=== PATIENT | male | born 1940 | race Caucasian/White ===

== ENCOUNTER 2017-01-15 06:47 | Day surgery (SDC) | payer MEDICARE ==
--- NOTE | 2017-01-01 10:50 | NUR ---
PREOP VISIT VISITED WITH PATIENT AND HIS PRIOR TO COLONOSCOPY/ EGD. PT HAS A CARDIAC HISTORY WITH NO CARDIAC EVENTS IN OVER A YEAR. HE SAW DR BARILLAS A MONTH AGO. REQUESTING CARDIAC CLEARANCE FROM DR BARILLAS. REVIEWED MEDICATIONS; ALLERGIES; AND HEALTH HISTORY WITH THE PATIENT AND HIS . QUESTIONS ASKED AND ANSWERED
[~2017-01-15] VITALS: Ht 170.2 cm; Wt 63.5 kg
[~2017-01-15 06:47] MED LIST: ASPI-611 PO; BENA40TA35 PO; CHOL200026 PO; CYAN25002 PO; FENO48TA5 PO; FLUO20CA30 PO; FOLI0.4T2 PO; HYDR12.512 PO; HYDR1TAB73 PO; SIMV40TA82 PO; SUCR1TAB43 PO; TIOT18CA6 IH
--- OUTSIDE RECORDS SUMMARY | 2017-01-15 06:51 | XMS REPORT ---
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 Problem Depressive disorder, 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 Problem Other chronic pain 338.29 Active Problem Chronic kidney disease, unspecified 585.9 Active Problem Mixed hyperlipidemia 272.2 Active Problem Hypertension, benign 401.1 Active Medications Medication Code System Code Instructions Start Date End Date Status Dosage Vitamin B-12 [facility] [address]-07 500 MCG Orally Once a day Active 1 tablet Hydrochlorothiazide [facility] [address]-08 12.5 Orally Once a day Active 1 tablet Fluoxetine HCl [facility] [address]-07 20 Orally Once a day Active taking 2 capsules daily Trilipix [facility] [address]-58 135 MG Orally Once a day Jun 08, 2014 Active 1 capsule Folic Acid [facility] [address]-85 800 MCG Orally Once a day Active 1 tablet Benazepril HCl [facility] [address]-74 40 MG Orally Once a day Jun 16, 2014 Active 1 tablet Simvastatin [facility] [address]-03 40 Active TAKE ONE TABLET BY MOUTH EVERY DAY Spiriva HandiHaler [facility] [address]-33 18 MCG Inhalation Once a day January 23, 2015 Active 1 capsule Vitamin D-3 Super Strength [facility] [address]-45 2000 UNIT Orally Active as directed Abilify [facility] [address]-57 2 MG Orally Once a day after supper May 26, 2014 Active 1 tablet Metoprolol Tartrate [facility] [address]-40 25 MG Orally once a day Active 1/2 tablet Aspirin Adult Low Strength [facility] [address]-31 81 MG Orally Once a day Active 1 tablet Trazodone HCl [facility] [address]-59 50 Active TAKE ONE-HALF TO ONE TABLET BY MOUTH EVERY NIGHT AT BEDTIME Procedures Procedure Coding System Code Date OFFICE VISIT, EST-MOD. COMPLEXITY (25 MIN) CPT-4 53192 Sep 22, 2014 Vital Signs Date/Time: Sep 22, 2014 Height 66 inches Weight 137 lbs Temperature 97.6 F Blood Pressure Diastolic 60 mm Hg Blood Pressure Systolic 132 mm Hg Cardiac Monitoring Heart Rate 60 Beats per Minute BMI 22.11 Index Respiratory Rate 18 per Minute Results No Known Results Summary Purpose eClinicalWorks Submission
--- OUTSIDE RECORDS SUMMARY | 2017-01-15 06:51 | XMS REPORT ---
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
--- OUTSIDE RECORDS SUMMARY | 2017-01-15 06:52 | XMS REPORT ---
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
--- OUTSIDE RECORDS SUMMARY | 2017-01-15 06:52 | XMS REPORT ---
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 Active Problem Essential (primary) hypertension I10 Active Problem Other chronic pain G89.29 Active Problem Mixed hyperlipidemia E78.2 Active Problem Major depressive disorder, single episode, unspecified F32.9 Active Problem Depressive disorder, 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 Problem Chronic kidney disease, unspecified N18.9 Active Problem Chronic obstructive pulmonary disease, unspecified J44.9 Active Problem Chronic airway obstruction, not elsewhere classified 496 Active Problem Chronic kidney disease, unspecified 585.9 Active Problem Other chronic pain 338.29 Active Problem Hypertension, benign 401.1 Active Medications Medication Code System Code Instructions Start Date End Date Status Dosage Hydrocodone-Acetaminophen [facility][NOTE 3] [address]-52 7.5-325 MG Orally every 6 hrs as needed Sep 24, 2016 1 tablet as needed Results No Known Results Summary Purpose eClinicalWorks Submission
--- OUTSIDE RECORDS SUMMARY | 2017-01-15 06:52 | XMS REPORT ---
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
--- OUTSIDE RECORDS SUMMARY | 2017-01-15 06:52 | XMS REPORT ---
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
--- OUTSIDE RECORDS SUMMARY | 2017-01-15 06:52 | XMS REPORT ---
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 Active Problem Essential (primary) hypertension I10 Active Assessment Major depressive disorder, single episode, unspecified F32.9 Active Problem Other chronic pain G89.29 Active Problem Mixed hyperlipidemia E78.2 Active Problem Major depressive disorder, single episode, unspecified F32.9 Active Problem Depressive disorder, 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 Problem Chronic kidney disease, unspecified N18.9 Active Problem Chronic obstructive pulmonary disease, unspecified J44.9 Active Assessment Other chronic pain G89.29 Active Assessment Essential (primary) hypertension I10 Active Assessment Chronic obstructive pulmonary disease, unspecified J44.9 Active Assessment Chronic kidney disease, unspecified N18.9 Active Problem Chronic airway obstruction, not elsewhere classified 496 Active Problem Chronic kidney disease, unspecified 585.9 Active Assessment Mixed hyperlipidemia E78.2 Active Problem Other chronic pain 338.29 Active Assessment 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 Problem Hypertension, benign 401.1 Active Medications Medication Code System Code Instructions Start Date End Date Status Dosage Simvastatin [facility] [address]-88 40 MG Orally Once a day TAKE ONE TABLET BY MOUTH EVERY DAY Aspirin Adult Low Strength [facility] [address]-82 81 MG Orally Once a day 1 tablet Trazodone HCl [facility] 51726057384 50 TAKE ONE-HALF TO ONE TABLET BY MOUTH EVERY NIGHT AT BEDTIME Fluoxetine HCl [facility] [address]-97 20 Orally Once a day February 11, 2015 taking 2 capsules daily Multivitamins [facility] [address]-39 Orally not defined Cetirizine HCl [facility] [address]-22 10 MG Orally Once a day Sep 13, 2015 Dec 12, 2015 1 tablet Hydrocodone-Acetaminophen [facility] [address]-29 7.5-325 MG Orally every 6 hrs January 14, 2015 1 tablet as needed Fenofibrate [facility] [address]-09 48 MG Orally Once a day 1 tablet Benazepril HCl [facility] [address]-97 40 MG Orally Once a day Jun 16, 2014 1 tablet Folic Acid [facility] [address]-19 800 MCG Orally Once a day 1 tablet Sucralfate [facility] [address]-65 1 GM Orally Four times a day before meals and at bedtime January 03, 2016 1 tablet Metoprolol Tartrate [facility] 44152688111 25MG TAKE ONE-HALF TABLET BY MOUTH ONCE DAILY Spiriva HandiHaler [facility] [address]-84 18 MCG Inhalation Once a day Nov 1 capsule Procedures Procedure Coding System Code Date ASSAY OF PHOSPHORUS CPT-4 91105 Sep 13, 2015 TSH CPT-4 24226 Sep 13, 2015 COMPLETE CBC W/AUTO DIFF WBC CPT-4 52025 Sep 13, 2015 IH LIPID PANEL CPT-4 80009 Sep 13, 2015 IH CMP CPT-4 23607 Sep 13, 2015 OFFICE VISIT, EST-LOW COMPLEXITY (15 MIN.) CPT-4 90149 Sep 13, 2015 Vital Signs Date/Time: Sep 13, 2015 BMI 22.24 Index Height 66 in Weight 137.8 lbs Respiratory Rate 16 /min Blood Pressure Diastolic 84 mm Hg Blood Pressure Systolic 164 mm Hg Cardiac Monitoring Heart Rate 55 /min Results Name Result Date Reference Range Unit Abnormality Flag TSH ----TSH 3.78 [id number] 0.35-4.94 uIU/mL In House CMP ----Total Protein 7.5 54144207 6.4 - 8.1 G/DL ----Glucose 91 52162644 73 - 118 mg/DL ----Chloride 97* 46138938 98 - 108 mmol/L ----Albumin 3.9 65121847 3.3 - 5.5 g/DL ----BUN 20 20150913 7 - 22 mg/DL ----Total Bilirubin 0.7 39143419 0.2 - 1.6 mg/DL ----Calcium 9.5 18496523 8.0 - 10.3 mg/DL ----AST 25 65543145 11 - 38 u/L ----Sodium 140 84783967 128 - 145 mmol/L ----CO2 30 76766364 18 - 33 mmol/L ----Potassium 4.6 50630650 3.6 - 5.1 mmol/L ----ALT 16 95590376 10 - 47 u/L ----Creatinine 1.5* 93677869 0.6 - 1.2 mg/DL ----Alkaline Phosphatase 48* 88485604 53 - 128 u/L CBC With Platelet and Differential ----Absolute Eosinophils 0.46 79153231 0.00-0.50 10*3 ----Absolute Monocytes 1.03 14935793 0.30-1.00 10*3 H ----Neutrophils 65 84838196 51-75 % ----Absolute Basophils 0.08 77484403 0.00-0.20 10*3 ----MPV 10.7 87910621 8.8-14.8 fL ----Monocytes 11 13864237 4-11 % ----RDW 13.7 44893583 11.5-14.5 % ----Lymphocytes 18 49359063 20-46 % L ----MCHC 33.8 24921415 32.0-36.0 g/dL ----MCH 31.3 60918374 27.0-32.0 pg ----MCV 92.6 38858423 82.0-99.0 fL ----Immature Granulocytes 0.2 26051614 0.0-1.0 % ----Platelet Count 277 63869559 150-400 K/uL ----Absolute Lymphocytes 1.61 36408866 0.80-3.30 10*3 ----Absolute Neutrophils 5.88 00019507 1.90-7.00 10*3 ----Eosinophils 5 23333508 0-4 % H ----Basophils 1 47674277 0-2 % ----WBC 9.1 79269045 4.8-10.8 K/uL ----RBC 5.11 37326455 4.60-6.20 10*6/uL ----HGB 16.0 21789937 14.0-18.0 g/dL ----HCT 47.3 20150913 42.0-52.0 % Phosphorus ----Phosphorus 4.6 50242628 2.3-4.7 mg/dL In House Lipid Panel ----VLDL 64 20150913 ----LDL 67 20150913 ----Chol/HDL Ratio 3.8 20150913 ----[facility] 131 20150913 ----Triglycerides 319 20150913 ----HDL 47 97211607 ----Cholesterol 178 20150913 Summary Purpose eClinicalWorks Submission
--- OUTSIDE RECORDS SUMMARY | 2017-01-15 06:52 | XMS REPORT ---
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 Active Problem Essential (primary) [...] Chronic kidney disease, unspecified 585.9 Active Assessment Major depressive disorder, single episode, unspecified F32.9 Active Problem Other chronic pain 338.29 Active Assessment Other chronic pain G89.29 Active Problem Hypertension, benign 401.1 Active Medications Medication Code System Code Instructions Start Date End Date Status Dosage Aspirin Adult Low Strength [facility] [address]-60 81 MG Orally Once a day 1 tablet Trazodone HCl [facility] 17424514647 50 TAKE ONE-HALF TO ONE TABLET BY MOUTH EVERY NIGHT AT BEDTIME Fenofibrate [facility] [address]-57 48 MG Orally Once a day 1 tablet Hydrocodone-Acetaminophen [facility] [address]-61 7.5-325 MG Orally every 6 hrs as needed Dec 03, 2015 1 tablet as needed Multivitamins [facility] [address]-26 Orally not defined Fluoxetine HCl [facility] [address]-54 20 MG Orally Once a day February 11, 2015 2 capsules Sucralfate [facility] [address]-94 1 GM Orally Four times a day before meals and at bedtime January 03, 2016 1 tablet Simvastatin [facility] [address]-35 40 MG Orally Once a day TAKE ONE TABLET BY MOUTH EVERY DAY Folic Acid [facility] [address]-57 800 MCG Orally Once a day 1 tablet Cetirizine HCl [facility] [address]-59 10 MG Orally Once a day Sep 13, 2015 Dec 12, 2015 1 tablet Metoprolol Tartrate [facility] 17655193535 25MG TAKE ONE-HALF TABLET BY MOUTH ONCE DAILY Benazepril HCl [facility] [address]-49 40 MG Orally Once a day Jun 16, 2014 1 tablet Spiriva HandiHaler [facility] [address]-97 18 MCG Inhalation Once a day Nov 1 capsule Procedures Procedure Coding System Code Date OFFICE VISIT, EST-LOW COMPLEXITY (15 MIN.) CPT-4 04944 Nov 03, 2015 [facility] visit Established Patient CPT-4 G0467 Nov 03, 2015 Vital Signs Date/Time: Nov 03, 2015 Height 66 in Weight 135.12 lbs Temperature 97.9 F Blood Pressure Diastolic 64 mm Hg Blood Pressure Systolic 118 mm Hg Cardiac Monitoring Heart Rate 56 /min BMI 21.81 Index Respiratory Rate 18 /min Results No Known Results Summary Purpose eClinicalWorks Submission
--- OUTSIDE RECORDS SUMMARY | 2017-01-15 06:52 | XMS REPORT ---
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
--- OUTSIDE RECORDS SUMMARY | 2017-01-15 06:52 | XMS REPORT ---
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
--- OUTSIDE RECORDS SUMMARY | 2017-01-15 06:52 | XMS REPORT ---
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
--- OUTSIDE RECORDS SUMMARY | 2017-01-15 06:52 | XMS REPORT ---
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 Problem Other chronic pain 338.29 Active Problem Chronic kidney disease, unspecified 585.9 Active Problem Mixed hyperlipidemia 272.2 Active Problem Hypertension, benign 401.1 Active Medications Medication Code System Code Instructions Start Date End Date Status Dosage [facility] [place] [address]-56 7.5-325 MG Orally every 6 hrs *February fill 10/12/14* Oct 16, 2013 Sep 11, 2014 Active 1 tablet as needed Vital Signs Date/Time: Jul 28, 2014 Height 66 inches Weight 138.50 lbs Temperature 97.7 F Blood Pressure Diastolic 60 mm Hg Blood Pressure Systolic 118 mm Hg Cardiac Monitoring Heart Rate 64 Beats per Minute BMI 22.35 Index Respiratory Rate 16 per Minute Results No Known Results Summary Purpose eClinicalWorks Submission
--- OUTSIDE RECORDS SUMMARY | 2017-01-15 06:53 | XMS REPORT ---
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 [address]-53 7.5-325 MG Orally every 6 hrs Oct 30, 2015 1 tablet as needed Results No Known Results Summary Purpose eClinicalWorks Submission
--- OUTSIDE RECORDS SUMMARY | 2017-01-15 06:53 | XMS REPORT ---
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
--- OUTSIDE RECORDS SUMMARY | 2017-01-15 06:53 | XMS REPORT ---
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
--- OUTSIDE RECORDS SUMMARY | 2017-01-15 06:53 | XMS REPORT ---
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 [address]-42 20 MG Orally Once a day February 11, 2015 2 capsules Results No Known Results Summary Purpose eClinicalWorks Submission
--- OUTSIDE RECORDS SUMMARY | 2017-01-15 06:53 | XMS REPORT ---
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
--- OUTSIDE RECORDS SUMMARY | 2017-01-15 06:53 | XMS REPORT ---
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
--- OUTSIDE RECORDS SUMMARY | 2017-01-15 06:53 | XMS REPORT ---
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
--- OUTSIDE RECORDS SUMMARY | 2017-01-15 06:53 | XMS REPORT ---
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 To be filled Oct 10, 2016 every 6 hrs as needed Sep 29, 2016 1 tablet as needed Results No Known Results Summary Purpose eClinicalWorks Submission
--- OUTSIDE RECORDS SUMMARY | 2017-01-15 06:53 | XMS REPORT ---
Author Author Venecia Browning [facility] eClinicalWorks Address Unknown Phone Unavailable Care Team Providers Care Lead Pressman R[employer] Printing Name Role Phone Venecia Browning CP Unavailable Allergies, Adverse Reactions, Alerts Substance Reaction Event Type Wellbutrin hallucinations Drug Allergy NSAIDS-due to CKD Info Not Available Non Drug Allergy Problems Problem Type Condition Code Onset Dates Condition Status Assessment Mixed hyperlipidemia 272.2 Active Problem Chronic airway obstruction, not elsewhere classified 496 Active Assessment Macular degeneration (senile) of retina, unspecified 362.50 Active Problem Reflux esophagitis 530.11 Active Problem 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 Active Problem Depressive disorder, 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 Problem Other chronic pain 338.29 Active Problem Chronic kidney disease, unspecified 585.9 Active Problem Mixed hyperlipidemia 272.2 Active Problem Hypertension, benign 401.1 Active Assessment Chronic airway obstruction, not elsewhere classified 496 Active Assessment 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 Active Assessment Chronic kidney disease, unspecified 585.9 Active Assessment Reflux esophagitis 530.11 Active Assessment Other chronic pain 338.29 Active Assessment Depressive disorder, 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 Assessment Hypertension, benign 401.1 Active Medications Medication Code System Code Instructions Start Date End Date Status Dosage Aspirin Adult Low Strength [facility] [address]-84 81 MG Orally Once a day 1 tablet Benazepril HCl [facility] [address]-71 40 MG Orally Once a day Jun 16, 2014 1 tablet Vitamin B-12 [facility] [address]-24 500 MCG Orally Once a day 1 tablet Sucralfate [facility] [address]-60 1 GM Orally Twice a day 1 tablet Folic Acid [facility] [address]-61 800 MCG Orally Once a day 1 tablet [place] [facility] [address]-45 7.5-325 MG Orally every 6 hrs *February10/12/14* Oct 16, 2013 Sep 11, 2014 1 tablet as needed Trazodone HCl [facility] [address]-06 50 TAKE ONE-HALF TO ONE TABLET BY MOUTH EVERY NIGHT AT BEDTIME Fluoxetine HCl [facility] [address]-94 20 Orally Once a day taking 2 capsules daily Hydrochlorothiazide [facility] [address]-20 12.5 Orally Once a day 1 tablet Vitamin D-3 Super Strength [facility] [address]-05 2000 UNIT Orally as directed Spiriva HandiHaler [facility] [address]-33 18 MCG Inhalation Once a day Nov 1 capsule Hydrocodone-Acetaminophen [facility] [address]-93 7.5-325 MG Orally every 6 hrs January 14, 2015 1 tablet as needed Metoprolol Tartrate [facility] [address]-92 25 MG Orally once a day 1/2 tablet Simvastatin [facility] [address]-96 40 TAKE ONE TABLET BY MOUTH EVERY DAY Fenofibrate [facility] [address]-29 48 MG Orally Once a day 1 tablet Procedures Procedure Coding System Code Date COMPLETE CBC W/AUTO DIFF WBC CPT-4 39813 December 15, 2014 LIPID PANEL CPT-4 48003 December 15, 2014 OFFICE VISIT, EST-MOD. COMPLEXITY (25 MIN) CPT-4 27729 December 15, 2014 RENAL FUNCTION PANEL CPT-4 97669 December 15, 2014 Vital Signs Date/Time: December 15, 2014 Height 66 in Weight 142.4 lbs Temperature 97.9 F Blood Pressure Diastolic 78 mm Hg Blood Pressure Systolic 124 mm Hg Cardiac Monitoring Heart Rate 58 /min BMI 22.98 Index Respiratory Rate 16 /min Results No Known Results Summary Purpose eClinicalWorks Submission
--- OUTSIDE RECORDS SUMMARY | 2017-01-15 06:53 | XMS REPORT ---
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30 Active Assessment Other specified cardiac arrhythmias I49.8 Active Problem Chronic airway obstruction, not elsewhere classified 496 Active Problem Chronic kidney disease, unspecified 585.9 Active Assessment Other chronic pain G89.29 Active Problem Other chronic pain 338.29 Active Assessment Essential (primary) hypertension I10 Active Problem Hypertension, benign 401.1 Active Medications Medication Code System Code Instructions Start Date End Date Status Dosage OxyContin [facility] [address]-12 10 MG Orally once a day Oct 20, 2015 Nov 19, 2015 1 tablet Fluoxetine HCl [facility] [address]-96 20 MG Orally Once a day February 11, 2015 2 capsules Spiriva HandiHaler [facility] [address]-63 18 MCG Inhalation Once a day Nov 1 capsule Trazodone HCl [facility] 72685695486 50 TAKE ONE-HALF TO ONE TABLET BY MOUTH EVERY NIGHT AT BEDTIME Hydrocodone-Acetaminophen [facility] [address]-51 7.5-325 MG Orally in afternoon and bedtime 1 tablet as needed Aspirin Adult Low Strength [facility] [address]-62 81 MG Orally Once a day 1 tablet Cetirizine HCl [facility] [address]-05 10 MG Orally Once a day Sep 13, 2015 Dec 12, 2015 1 tablet Sucralfate [facility] [address]-16 1 GM Orally Four times a day before meals and at bedtime January 03, 2016 1 tablet Simvastatin [facility] [address]-08 40 MG Orally Once a day TAKE ONE TABLET BY MOUTH EVERY DAY Folic Acid [facility] [address]-66 800 MCG Orally Once a day 1 tablet Multivitamins [facility] [address]-98 Orally not defined Metoprolol Tartrate [facility] 21018625268 25MG TAKE ONE-HALF TABLET BY MOUTH ONCE DAILY Benazepril HCl [facility] [address]-63 40 MG Orally Once a day Jun 16, 2014 1 tablet Fenofibrate [facility] [address]-33 48 MG Orally Once a day 1 tablet Procedures Procedure Coding System Code Date [facility] visit Established Patient CPT-4 G0467 Oct 20, 2015 OFFICE VISIT, EST-MOD. COMPLEXITY (25 MIN) CPT-4 86452 Oct 20, 2015 [facility] visit Established Patient CPT-4 G0467 Oct 20, 2015 Vital Signs Date/Time: Oct 20, 2015 Height 66 in Weight 131.8 lbs Temperature 97.7 F Blood Pressure Diastolic 79 mm Hg Blood Pressure Systolic 134 mm Hg Cardiac Monitoring Heart Rate 58 /min BMI 21.27 Index Respiratory Rate 16 /min Results No Known Results Summary Purpose eClinicalWorks Submission
--- OUTSIDE RECORDS SUMMARY | 2017-01-15 06:53 | XMS REPORT ---
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 [address]-27 7.5-325 MG Orally every 6 hrs January 14, 2015 1 tablet as needed Results No Known Results Summary Purpose [employer] Submission
--- OUTSIDE RECORDS SUMMARY | 2017-01-15 06:53 | XMS REPORT ---
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
--- OUTSIDE RECORDS SUMMARY | 2017-01-15 06:53 | XMS REPORT ---
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
--- OUTSIDE RECORDS SUMMARY | 2017-01-15 06:53 | XMS REPORT ---
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
--- OUTSIDE RECORDS SUMMARY | 2017-01-15 06:54 | XMS REPORT | Continuity of Care Document ---
Author Author [facility] Organization [facility] Address Unknown Phone Unavailable Support Name Relationship Address Phone STACEY DOTSON FILTER TIP INSPECTOR [place] [address] RANDY GARCIA MD Caregiver [facility] [address] VERONICA ALLEN [place] [phone] PIERCE WINN Next Of Kin [address] [place] [address] C Insurance Providers Payer Name Policy Number Subscriber Name Relationship Medicareadvantra Ppo [id number] Ariel Winn 17 Self Advance Directives Directive Response Recorded Date/Time Ordered Resuscitation Status Full Code 09/30/14 7:35am Resuscitation Documents on File No 09/29/14 10:39am Problems No known problems or medical conditions. Medications Medication Dose Route Sig Days/Qty Instructions Order Date Discontinued Date Status Simvastatin 40 Mg PO DAILY 06/12/11 Active Benazepril Hcl 40 Mg PO DAILY 06/12/11 Active Metoprolol Tartrate 25 Mg PO DAILY 06/12/11 Active Hydrochlorothiazide 12.5 Mg PO DAILY 06/12/11 Active Fluoxetine HCl 40 Mg PO DAILY 06/12/11 Active Hydrocodone Bit/Acetaminophen 1 Tab PO PRN 07/06/11 Active Sucralfate 1 G PO DAILY 02/09/12 Active Omeprazole 40 Mg PO DAILY 02/09/12 07/10/12 Discontinued Aspirin 81 Mg PO DAILY 02/09/12 Active Folic Acid 1 Mg PO DAILY 02/09/12 Active Calcium 500 Mg PO DAILY 02/09/12 07/10/12 Discontinued Tiotropium [place] 18 Mcg IH DAILY 02/09/12 Active Vit C/Vit E/Lutein/Min/Switzer-3 1 Cap PO DAILY 09/29/14 Active Social History Social History Problem Response Recorded Date/Time Chewing Tobacco Status No 08/21/2013 9:07am Hx Substance Use No 09/29/2014 10:42am Hx Alcohol Use Y BEER ON THE WEEKENDS 09/29/2014 10:42am Has the pt used tobacco in the last 12 months Yes 09/29/2014 10:42am Query Response Start Date Stop Date Smoking Status Current every day smoker Hospital Discharge Instructions No hospital discharge instructions. Plan of Care No plan of care. Functional Status No functional status results. Allergies, Adverse Reactions, Alerts Allergen Type Severity Reaction Status Last Updated No Known Drug Allergies Allergy Active 06/12/11 Immunizations Name Given Type Hx Influenza Vaccination Y FALL 2013 Historical Hx Pneumococcal Vaccination No Historical Hx Influenza Vaccination Y FALL 2013 Historical Vital Signs Acute Vital Signs Vital Response Date/Time Temperature (Fahrenheit) 97.4 deg F (96.8 - 99.1) Temperature (Calculated Celsius) 36.99715 degrees C (36.0 - 37.3) Temperature Source Temporal Pulse Rate (adult) 60 bpm (60 - 100) Respiratory Rate 16 breaths/min (10 - 20) O2 Sat by Pulse Oximetry 94 % (90 - 100) Oxygen Delivery Method Room Air Blood Pressure 111/52 mm Hg Blood Pressure Source Automatic Cuff Height 5 ft 7 in Weight 138 lb Body Mass Index 21.0 kg/m^2 Results Test Source Date Result Interp. Ref. Range Comments Alanine Aminotransferase (ALT/SGPT) May 30, 2011 7:30am 19 U/L L 21- 72 Albumin May 28, 2014 9:29am 3.9 G/DL N 3.5-5.0 Albumin/Globulin Ratio May 30, 2011 7:30am 1.3 RATIO N 1.1-2.2 Alkaline Phosphatase May 30, 2011 7:30am 62 U/L N 38-126 Anion Gap May 28, 2014 9:29am 11 MEQ/L N 5-15 Aspartate Amino Transf (AST/SGOT) May 30, 2011 7:30am 21 U/L N 17-59 BUN/Creatinine Ratio May 28, 2014 9:29am 15 RATIO N 6-26 Band Neutrophils # December 27, 2011 12:00am 0.1 T/MM3 - COMMENT WILL CALL WHEN PT ADMITTED Band Neutrophils % December 27, 2011 12:00am 1.0 % N 0-6 COMMENT WILL CALL WHEN PT ADMITTED Basophils # (Auto) August 25, 2013 12:00pm 0.1 T/MM3 N 0-0.2 Basophils (%) (Auto) August 25, 2013 12:00pm 0.5 % N 0-2 Blood Urea Nitrogen May 28, 2014 9:29am 24.0 MG/DL H 9-20 Calcium Level May 28, 2014 9:29am 9.3 MG/DL N 8.4-10.2 Calculated Osmolality May 28, 2014 9:29am 272 MOSM/KG N 261-280 Carbon Dioxide Level May 28, 2014 9:29am 27 MEQ/L N 22-30 Chloride Level May 28, 2014 9:29am 101 MEQ/L N 98-107 Cholesterol Level May 30, 2011 7:30am 175 MG/DL N 132-199 Cholesterol/HDL Ratio May 30, 2011 7:30am 4.0 RATIO N 0-5.0 Creatinine May 28, 2014 9:29am 1.6 MG/DL H 0.8-1.5 Eosinophils # (Auto) August 25, 2013 12:00pm 0.3 T/MM3 N 0-0.5 Eosinophils # (Manual) December 27, 2011 12:00am 0.4 T/MM3 N 0-0.5 COMMENT WILL CALL WHEN PT ADMITTED Eosinophils % (Manual) December 27, 2011 12:00am 4.0 % N 0-4 COMMENT WILL CALL WHEN PT ADMITTED Eosinophils (%) (Auto) August 25, 2013 12:00pm 2.3 % N 0-4 Free Thyroxine May 30, 2011 7:30am 0.92 NG/DL N 0.78-2.19 Globulin May 30, 2011 7:30am 3.1 G/DL N 2.4-3.6 Glucose Level May 28, 2014 9:29am 102 MG/DL N 75-110 Helicobacter pylori IgG Antibody May 30, 2011 7:30am Ref lab rpt scanned - --- 05/31/11 0832 ---HPYLIGG previously reported as: SENT OUT Hematocrit August 25, 2013 12:00pm 43.3 % N 41-53 Hemoglobin August 25, 2013 12:00pm 14.2 GM/DL N 13.5-17.5 LDL Cholesterol, Calculated May 30, 2011 7:30am 95.0 N 66-159 Lymphocytes # (Auto) August 25, 2013 12:00pm 1.2 T/MM3 N 1-4.8 Lymphocytes # (Manual) December 27, 2011 12:00am 1.1 T/MM3 N 1-4.8 COMMENT WILL CALL WHEN PT ADMITTED Lymphocytes % (Manual) December 27, 2011 12:00am 11.0 % L 23-45 COMMENT WILL CALL WHEN PT ADMITTED Lymphocytes (%) (Auto) August 25, 2013 12:00pm 7.7 % L 23-45 Mean Corpuscular Hemoglobin August 25, 2013 12:00pm 31.3 UUG N 26-34 Mean Corpuscular Hemoglobin Concent August 25, 2013 12:00pm 32.8 GM/DL N 31-37 Mean Corpuscular Volume August 25, 2013 12:00pm 95.6 UM3 N 80-100 Mean Platelet Volume August 25, 2013 12:00pm 9.4 UM3 N 9.4-12.4 Monocytes # (Auto) August 25, 2013 12:00pm 0.8 T/MM3 N 0-0.8 Monocytes # (Manual) December 27, 2011 12:00am 0.8 T/MM3 N 0-0.8 COMMENT WILL CALL WHEN PT ADMITTED Monocytes % (Manual) December 27, 2011 12:00am 8.0 % N 0-9.0 COMMENT WILL CALL WHEN PT ADMITTED Monocytes (%) (Auto) August 25, 2013 12:00pm 5.2 % N 0-9.0 Neutrophils # (Auto) August 25, 2013 12:00pm 12.5 T/MM3 H 1.8-7.7 Neutrophils # (Manual) December 27, 2011 12:00am 7.8 T/MM3 H 1.8-7.7 COMMENT WILL CALL WHEN PT ADMITTED Neutrophils % (Manual) December 27, 2011 12:00am 76.0 % H 33-66 COMMENT WILL CALL WHEN PT ADMITTED Neutrophils (%) (Auto) August 25, 2013 12:00pm 84.0 % H 33-66 Parathyroid Hormone (Intact) January 08, 2012 11:04am 64.2 PG/ML H 7.5- 53.5 Phosphorus Level May 28, 2014 9:29am 4.7 MG/DL H 2.5-4.5 Platelet Count August 25, 2013 12:00pm 262 T/MM3 N 130-400 Potassium Level May 28, 2014 9:29am 4.5 MEQ/L N 3.6-5 Prostate Specific Antigen March 30, 2010 12:00am 2.94 NG/ML N 0-4.0 Prostate Specific Antigen Screen November 19, 2008 7:36am 2.23 NG/ML N 0 -4.0 Protein Electrophoresis (T) January 08, 2012 11:04am Ref lab rpt scanned - --- 01/11/12 1449 ---PROTELS previously reported as: SEND OUT RDW Standard Deviation August 25, 2013 12:00pm 46.5 FL N 36.9-50.2 Red Blood Count August 25, 2013 12:00pm 4.53 M/MM3 N 4.50-5.90 Sodium Level May 28, 2014 9:29am 139 MEQ/L N 134-144 Thyroid Stimulating Hormone (TSH) May 30, 2011 7:30am 3.10 MIU/L N 0.47-4.68 Total Bilirubin May 30, 2011 7:30am 0.30 MG/DL N 0.20-1.30 Total Protein May 30, 2011 7:30am 7.2 G/DL N 6.3-8.2 Triglycerides Level May 30, 2011 7:30am 180 MG/DL H 40-160 Urine Bilirubin January 08, 2012 11:04am Negative - [facility]U [place] Urine Blood January 08, 2012 11:04am Negative - [facility] [place] [facility] Urine Collection Type January 08, 2012 11:04am Voided - [facility] [place] [facility] Urine Color January 08, 2012 11:04am Yellow - [facility] [place] [facility] Urine Culture Indicated January 08, 2012 11:04am Cult not indicated - [facility] Urine Glucose (UA) January 08, 2012 11:04am Negative - [facility] [place] [facility] Urine Ketones January 08, 2012 11:04am Negative - [facility] [place] Urine Leukocyte Esterase January 08, 2012 11:04am Negative - [facility] [place] Urine Microalbumin December 28, 2011 10:30am 8.8 MG/L N 0-17 Urine Microalbumin/Creatinine Ratio December 28, 2011 10:30am 63.4 H 0-30 Urine Mucus December 28, 2011 10:30am Present - Urine Nitrite January 08, 2012 11:04am Negative - [facility] [place] Urine Protein January 08, 2012 11:04am Negative - [facility] [place] Urine Protein Electrophoresis 24 hr January 08, 2012 11:04am Ref lab rpt scanned - --- 01/10/12 1548 ---PROTELU previously reported as: SEND OUT Urine RBC December 28, 2011 10:30am Trace /HPF - Urine Random Creatinine December 28, 2011 10:30am 138.7 MG/DL - Urine Specific [place] January 08, 2012 11:04am 1.020 - [facility] Urine Turbidity January 08, 2012 11:04am Clear - [facility] Urine Urobilinogen January 08, 2012 11:04am Normal EU/DL - [facility] Urine WBC December 28, 2011 10:30am None seen /HPF - Urine pH January 08, 2012 11:04am 5.0 - [facility] [place] VLDL Cholesterol May 30, 2011 7:30am 36.0 MG/DL H 0-28 Vitamin D 25-Hydroxy January 08, 2012 11:04am Ref lab rpt scanned - -- - 01/11/12 1449 ---[email or web address] previously reported as: SEND OUT White Blood Count August 25, 2013 12:00pm 14.9 T/MM3 H 4.5-11.0 Chemistry Specimen Hemolysis May 28, 2014 9:29am < 15 0-25 0-25: No Hemolysis.26-70: Slight Hemolysis - can falsely elevate K and Urine Protein. 71-285: Moderate Hemolysis - can falsely elevate K, Troponin I, CA 19-9, PTH, CSF GLucose, and Urine Protein, and can falsely decrease Phenytoin. 286-999: Gross Hemolysis - can falsely elevate K, Troponin I, CA 19-9, PTH, CSF Glucose, and Urine Protine, and can falsely decrease Phenytoin. Recommend specimen recollection. Lab Scanned Report May 28, 2014 11:28am LAB TEST FORM REQUEST [id number] - HDL Cholesterol Direct May 30, 2011 7:30am 44 MG/DL N 40-60 Turbidity May 28, 2014 9:29am < 20 0-20 Glomerular Filtration Rate Calc May 28, 2014 9:29am 42 - Immature Granulocyte # (Auto) August 25, 2013 12:00pm 0.05 T/MM3 H 0.00-0.03 Immature Granulocyte % (Auto) August 25, 2013 12:00pm 0.3 % N 0.0-0.5 Icterus Index May 28, 2014 9:29am < 2 0-7 C. difficile Toxin B Gene (PCR) August 16, 2013 5:30am Negative - If Toxin A is clinically indicated, treat accordingly. Helicobacter pylori Rapid Urease Gastric Biopsy June 13, 2011 11:07am Procedures Procedure Status Date Provider(s) Esophagogastroduodenoscopy (EGD) with heater probe therapy completed RANDY GARCIA MD
[2017-01-15] MEDS ORDERED: LR 1,000 ML IV SCH (07:00)
[2017-01-15] MEDS ORDERED: LIDOCAINE 1% (10mg/ml) 2ml SDV INJ ONE (07:00)
[2017-01-15 07:10] VITALS: Ht 170.2 cm; Wt 63.5 kg
[2017-01-15] MEDS ORDERED: LIDOCAINE VISCOUS 2% Oral Soln 15ml UD ONE (07:20)
[2017-01-15 07:30] VITALS: BP 137/68; PULSE 68; RESP 18; TEMP 97.8; O2SAT 96
[2017-01-15] MEDS ORDERED: HYDR-4010 PO (07:51)
[2017-01-15] MEDS ORDERED: PROPOFOL 500mg 50 ML IV ONE (08:48)
[2017-01-15] MEDS ORDERED: LIDOCAINE (2%) 100 MG/5 ML PF SYRINGE IV ONE (08:48)
--- NOTE | 2017-01-15 08:52 | ANESPREOP ---
Anesthesia Record Date and Time DATE: 01/15/17 TIME: 08:50 Pre-Op Diagnosis Hx of polyps Proposed Surgical Procedure COLONOSCOPY NPO since: Midnight Allergies: Coded Allergies: No Known Drug Allergies (Verified Allergy, Unknown, 01/15/17) Ht/Wt/BMI Height: 5 ' 7.00 " Weight: 63.500 kg BMI: 21.9 kg/m2 Medications Inpatient Medications Current Medications Medications (Trade) Dose Ordered Sig/Fredi Start Time Stop Time Status Last Admin Dose Admin Lactated Ringer's (Lactated Ringers) 1,000 ml @ 50 mls/hr Q20H 01/15/17 07:00 01/15/17 07:58 50 MLS/HR Aspirin (Aspirin) 81 Mg Tablet, 81 MG PO DAILY, (Reported) Last Taken: on 01/14/17 050 Benazepril Hcl (Benazepril Hcl) 40 Mg Tablet, 40 MG PO DAILY, (Reported) Last Taken: on 01/14/17 050 Cholecalciferol (Vitamin D3) (Vitamin D-3) 2, 000 Unit Capsule, 1 CAP PO DAILY, (Reported) Last Taken: on 01/14/17 050 Cyanocobalamin (Vitamin B-12) (Vitamin B-12) 2, 500 Mcg Tab.subl, 1 TAB PO DAILY, (Reported) Last Taken: on 01/14/17 050 Fenofibrate Nanocrystallized (Fenofibrate) 48 Mg Tablet, 1 TAB PO DAILY, (Reported) Last Taken: on Unknown Date & Time Fluoxetine HCl (Prozac) 20 Mg Capsule, 2 CAP PO DAILY, (Reported) Last Taken: on 01/14/17 0500 Folic Acid (Folic Acid) 0.4 Mg Tablet, 1 TAB PO DAILY, (Reported) Last Taken: on 01/14/17 0500 Hydrochlorothiazide (Hydrochlorothiazide) 12.5 Mg Tablet, 0.5 TAB PO DAILY, (Reported) Last Taken: on 01/14/17 0500 Hydrocodone/Acetaminophen (Lortab 7.5-325 mg Tablet) 1 Each Tablet, 1 TAB PO Q4H PRN for PAIN, (Reported) Last Taken: on 01/14/17 1900 Simvastatin (Simvastatin) 40 Mg Tablet, 40 MG PO DAILY, (Reported) Last Taken: on Unknown Date & Time Sucralfate (Carafate) 1 G Tablet, 1 G PO , (Reported) Last Taken: on 01/14/17 0500 Tiotropium [place] (Spiriva) 18 Mcg Cap.w.dev, 18 MCG IH DAILY, (Reported) Last Taken: on Unknown Date & Time Currently on Beta [place]: No Medical/Surgical History Anesthesia PMH: Reports: *Angina (over a year ), *Dyspnea, *Hypertension, *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 smoked today?: No Use Chewing Tobacco?: No Second Hand Exposure: No Substance Use Type: does not use Alcohol Intake: none Past Surgical History Orthopedic Surgeries: No Abdominal Surgeries: No Genitourinary Surgeries: No Cardiac Surgeries: Yes - carotid surgery, 5 bypass, heart stents Endocrine Surgeries: No Reproductive Surgeries: No Neurological Surgeries: No Ear Surgeries: No Nose Surgeries: No Throat Surgeries: Yes - EGD Other Surgeries: Yes - Anthony CATARACTS,EGD x3,COLONOSCOPY x2 Anesthesia Adverse Reactions: FOUND none Family Hx of Anesthesia Advers: none Pertinent Findings EKG Rhythm: Sinus Rhythm Physical Exam Respiratory: Lungs clear Cardiovascular: FOUND Regular rate, rhythm Airway Assessment Mallampati Score: II TMD: 3 Fingerbreadths Neck Extension: Good Overall Assessment: May Be Diff Mask Vent. ASA: 3 Plan Anesthesia Plan: TIVA Discussion Discussed risks/options/alternatives of anesthesia and questions answered. Patient consents. Nursing pain assessment noted. Present: Spouse Attestation Statement Prior to the delivery of any anesthetic medication, I examined the patient, developed the plan, obtained the patient's consent and discussed the risk and benefits of the procedure with the patient/guardian. HARIS CARVAJAL DREDGE BOAT ENGINEER Jan 15, 2017 08:52
[2017-01-15 10:14] VITALS: BP 96/56; PULSE 65; RESP 16; TEMP 97.3; O2SAT 94
[2017-01-15 10:26] VITALS: BP 108/65; PULSE 50; RESP 16; O2SAT 94
--- NOTE | 2017-01-15 10:27 | GSPOSTPROC ---
Immediate Operative Note DATE: 01/15/17 TIME: 10:25 Postop Diagnosis: * Gastritis * Duodenal stricture * Distal esophageal stricture * Mild internal hemorrhoids * Mild sigmoid diverticulosis Surgical Procedure: EGD w/Biopsies (and dilatation of duodenum and distal esophagus), C-scope w/Biopsies Surgeon: Puma ASA: 3 RANDY GARCIA MD Jan 15, 2017 10:27
[2017-01-15] MEDS ORDERED: OMEP20CA10 PO (10:34)
[2017-01-15 10:40] VITALS: BP 125/56; PULSE 55; RESP 18; O2SAT 95
--- NOTE | 2017-01-15 10:43 | ANESPO ---
Post-Op Note Date 01/15/17 Time: 10:43 Status Pt Participated in Evaluation: Pt participated in person Vital Signs Date Time Temp Pulse Resp B/P Pulse Ox O2 Delivery O2 Flow Rate FiO2 01/15/17 10:26 50 16 108/65 94 Room Air 01/15/17 10:14 97.3 6.00 Respiratory Function: Airway patent Telemetry Pattern: SR Mental Status: Alert/oriented Pain Level Intensity: 0 Hydration: Taking po fluids Complications during Recovery None apparent Follow-Up Instructions Instructions Per Surgeon HARIS CARVAJAL PIPED POCKET MACHINE OPERATOR Jan 15, 2017 10:43
[2017-01-15 10:55] VITALS: BP 123/60; PULSE 56; RESP 20; O2SAT 94
--- NOTE | 2017-01-15 13:26 | OPNOTEF ---
DATE OF OPERATION 01/15/2017 SURGEON Napoleon Bartholomew MD PREOPERATIVE DIAGNOSES 1. Esophageal dysphagia. 2. Personal history of unresected colon polyp in the cecum. 3. Personal history of collagenous colitis. POSTOPERATIVE DIAGNOSES 1. Gastritis - no ulceration. 2. Duodenal stricture with original lumen less than 1 cm. 3. Distal esophageal stricture - original lumen diameter of just over 1 cm. 4. Mild internal hemorrhoids. 5. Mild sigmoid diverticulosis. PROCEDURE 1. EGD with antral biopsy for ZONIA testing and gastric biopsies for histology. 2. Balloon dilatation of duodenal stricture to 14 mm diameter. 3. Balloon dilatation of the distal esophagus to a 15 mm diameter. 4. Colonoscopy with random colon biopsies. ANESTHESIA TIVA ASA CLASS 3 INDICATIONS The patient is a 76-year-old male who had developed esophageal dysphagia. He has had multiple prior EGDs with balloon dilatation of the distal esophagus. His last endoscopy with dilatation was performed on 09/30/2014. He had also had a colonoscopy in August 2013 that had shown a polyp in the cecum along with collagenous colitis. Repeat colonoscopy had been recommended to reevaluate the area of polyp even though it had shown a hyperplastic polyp on pathology. Repeat colonoscopy was also recommended given his history of the collagenous colitis and the ulceration of the ascending colon. FINDINGS The duodenum and the second portion had a narrowed area that did not allow passage of the gastroscope prior to balloon dilatation. Following balloon dilatation, there was appropriate fracturing of the mucosa but no evidence of perforation. The gastroscope then passed easily into the third portion of the duodenum. There was some gastritis in the antrum but no evidence of ulceration. The distal esophagus just proximal to the GE junction showed some recurrent stricturing. The gastroscope was able to pass the area but the area was wider following balloon dilatation. The colon showed no gross evidence of ongoing colitis. No polyp was noted in the cecum. There were a few diverticula noted and mild internal hemorrhoids seen. DESCRIPTION OF PROCEDURE After informed consent was obtained, the patient was taken to the endoscopy suite and placed in left lateral decubitus position. IV anesthesia was administered by the anesthesia team. A bite block was inserted followed by an [employer] video gastroscope. The gastroscope was advanced down to the level of the second portion of the duodenum under direct vision. The duodenal stricture was not able to be traversed. The scope was withdrawn into the stomach and a biopsy was taken for ZONIA testing. Additional biopsies of the irritation in the antrum were taken and were sent to pathology. The scope was re-advanced into the duodenum and a balloon dilator was passed through the gastroscope and through the level of the stricture in the duodenum. It was inflated to a 12 mm diameter and held there for over a minute. Mild fracturing was noted. The diameter was increased to 13.5 mm and was held for a minute after inspection of the mucosa. The stricture was able to be well visualized through the balloon and the small areas of fracture were noted, so slight increased pressure to 5.5 atmospheres was utilized to allow slight additional stretching under direct vision. It was felt that the level of fracture was appropriate and that further dilatation may result in perforation, so the balloon was deflated after it had been held for a minute and the balloon was removed. The area was inspected and was found to be hemostatic. The gastroscope then easily traversed the area into the third portion of the duodenum. The scope was withdrawn to the distal esophagus after the stomach had been inspected including retroflexion of the scope. The area of stricture was dilated up to 15 mm diameter with the balloon dilator. This was performed three times and the balloon was held for a minute. After the final two dilatations, the balloon was able to be pushed into the stomach confirming adequate lumen of the distal esophagus. The balloon was then removed. The area was inspected and was found to be hemostatic. The scope was then withdrawn examining the esophagus circumferentially. A digital rectal exam was performed and was normal. The patient had received a MiraLAX/Dulcolax bowel prep the day prior. An Olympus video colonoscope with an Amplif[employer] device was inserted and retroflexed to examine distal rectum. Mild internal hemorrhoids were noted. The scope was returned to a neutral position and was advanced to the level of cecum without difficulty. The cecum was identified by the appendiceal orifice and ileocecal valve. The bowel prep was very good with minimal residual liquid contents of the colon that were able to be irrigated and evacuated via the colonoscope. No abnormalities were noted at this point in the cecum. The scope was slowly withdrawn examining mucosa circumferentially. Some random biopsies were taken of the colon given the history of collagenous colitis to see if this was ongoing. In the sigmoid colon, mild diverticulosis was also noted. Upon reaching the rectum, the carbon dioxide insufflation was evacuated and the scope was removed. The random colon biopsies were sent to pathology. The patient tolerated the procedure well. He was awakened and transferred to the recovery area in stable condition. RECOMMENDATIONS 1. Use a daily fiber supplement to avoid problems with constipation and diarrhea along with prevention of more diverticula forming. 2. Await pathology results. 3. Begin omeprazole 20 mg daily. I think he will need to be on this long-term given the recurrent nature of his esophageal stricture. CARIE
== END 2017-01-15 11:00 | disposition home or self-care (01) ==
LOC: NSC 06:47
PROVIDERS: ATTEND Surgery
DX: K22.2 Esophageal obstruction (principal); K31.5 Obstruction of duodenum; K29.60 Other gastritis without bleeding; R13.10 Dysphagia, unspecified; K21.9 Gastro-esophageal reflux disease without esophagitis; D12.0 Benign neoplasm of cecum; K52.9 Noninfective gastroenteritis and colitis, unspecified; Z87.19 Personal history of other diseases of the digestive system; K64.8 Other hemorrhoids; K57.30 Diverticulosis of large intestine without perforation or abscess without bleeding; I25.10 Atherosclerotic heart disease of native coronary artery without angina pectoris; I25.2 Old myocardial infarction; F32.9 Major depressive disorder, single episode, unspecified; E78.5 Hyperlipidemia, unspecified; I12.9 Hypertensive chronic kidney disease with stage 1 through stage 4 chronic kidney disease, or unspecified chronic kidney disease; N18.3 Chronic kidney disease, stage 3 (moderate); J44.9 Chronic obstructive pulmonary disease, unspecified; F41.9 Anxiety disorder, unspecified; Z79.899 Other long term (current) drug therapy; Z79.82 Long term (current) use of aspirin; F17.210 Nicotine dependence, cigarettes, uncomplicated; Z86.73 Personal history of transient ischemic attack (TIA), and cerebral infarction without residual deficits
CPT/HCPCS: 43239; 43245; 43249; 45380; 87081; J7120